=== PATIENT | male | born 1995 | race African-American/Black ===

== ENCOUNTER 2021-03-26 22:04 | Emergency (ER) | payer SELFPAY ==
[~2021-03-26] VITALS: Ht 188 cm; Wt 104.0 kg
[~2021-03-26 22:04] MED LIST: SERT25TA PO
[2021-03-26] MEDS ORDERED: LORA10TA3 PO (22:51)
--- NOTE | 2021-03-26 22:52 | PHYS DOC ---
Past Medical History Past Medical History: Anxiety Past Surgical History: No Surgical History Smoking Status: Never Smoker Alcohol Use: None Drug Use: None General Adult EDM: Chief Complaint: MEDICATION REFILL HPI: HPI: Patient is a 25 year old male who presents for refill of loratadine, he takes it for seasonal allergies, he states he typically has nasal congestion as part of his seasonal allergies. Review of Systems: Review of Systems: Constitutional: Denies fever or chills. [] Eyes: Denies change in visual acuity. [] HENT: Reports chronic nasal congestion from seasonal allergies Respiratory: Denies cough or shortness of breath. [] Cardiovascular: Denies chest pain or edema. [] GI: Denies abdominal pain, nausea, vomiting, bloody stools or diarrhea. [] : Denies dysuria. [] Musculoskeletal: Denies back pain or joint pain. [] Integument: Denies rash. [] Neurologic: Denies headache, focal weakness or sensory changes. [] ] Psychiatric: Denies depression or anxiety. [] Heart Score: C/O Chest Pain: N/A Risk Factors: Risk Factors: DM, Current or recent (<one month) smoker, HTN, HLP, family history of CAD, obesity. Risk Scores: Score 0 - 3: 2.5% MACE over next 6 weeks - Discharge Home Score 4 - 6: 20.3% MACE over next 6 weeks - Admit for Clinical Observation Score 7 - 10: 72.7% MACE over next 6 weeks - Early Invasive Strategies Allergies: Allergies: Allergies Coded Allergies Type Severity Reaction Last Updated Verified No Known Drug Allergies 02/15/14 No Physical Exam: PE: Constitutional: Well developed, well nourished, no acute distress, non-toxic appearance. [] HENT: Normocephalic, atraumatic, bilateral external ears normal, oropharynx moist, no oral exudates, patient sounds congested nasally Eyes: PERRLA, EOMI, conjunctiva normal, no discharge. [] Neck: Normal range of motion, no tenderness, supple, no stridor. [] Cardiovascular:Heart rate regular rhythm, no murmur [] Lungs & Thorax: Bilateral breath sounds clear to auscultation [] Abdomen: Bowel sounds normal, soft, no tenderness, no masses, no pulsatile masses. [] Skin: Warm, dry, no erythema, no rash. [] Back: No tenderness, no CVA tenderness. [] Extremities: No tenderness, no cyanosis, no clubbing, ROM intact, no edema. [] Neurologic: Alert and oriented X 3, normal motor function, normal sensory functi on, no focal deficits noted. [] Psychologic: Affect normal, judgement normal, mood normal. [] EKG: EKG: [] Radiology/Procedures: Radiology/Procedures: [] Course & Med Decision Making: Course & Med Decision Making Pertinent Labs and Imaging studies reviewed. (See chart for details) This is a 25-year-old male patient presenting to the ED today for refill of loratadine for seasonal allergies. Prescription given to patient but he was advised this medicine is [id number], I also recommended following up with an allergy clinic Varun Disclaimer: Varun Disclaimer: This electronic medical record was generated, in whole or in part, using a voice recognition dictation system. Departure Departure Impression: Primary Impression: Medication refill Additional Impression: Seasonal allergies Disposition: 01 HOME / SELF CARE / HOMELESS Condition: STABLE Referrals: NO PCP (PCP) follow up with an allergy clinic or your own doctor in 1 to 2 weeks Patient Instructions: Allergies, Generic Additional Instructions: You were evaluated in the emergency room, we sent a prescription for loratadine to your pharmacy. This medicine is also available [id number]. Consider following up with an allergy clinic Scripts Loratadine (LORATADINE) 10 Mg Tablet 1 TAB PO DAILY, #90 TAB 0 Refills Prov: SACHA THOMPSON APRN 03/26/21 SACHA THOMPSON APRN Mar 26, 2021 22:52
[2021-03-26 23:00] VITALS: BP 141/85
== END 2021-03-26 23:00 | disposition home or self-care (01) ==
LOC: ER 22:04
DX: J30.2 Other seasonal allergic rhinitis (principal); Z76.0 Encounter for issue of repeat prescription
CPT/HCPCS: 99281